=== PATIENT | male | born 1965 | race Hispanic/Latino ===

== ENCOUNTER 2020-07-27 22:01 | Emergency (ER) | payer OTHER, MEDICARE ==
[~2020-07-27] VITALS: Ht 165.1 cm; Wt 70.3 kg
== END 2020-07-27 23:49 | disposition home or self-care (01) ==
LOC: ED 22:01
DX: S51.812A Laceration without foreign body of left forearm, initial encounter (principal); F17.200 Nicotine dependence, unspecified, uncomplicated; X99.1XXA Assault by knife, initial encounter
CPT/HCPCS: 12004; 90471; 90715; 99283-25

== ENCOUNTER 2022-02-19 09:25 | Emergency (ER) | payer MEDICARE, OTHER ==
[~2022-02-19] VITALS: Ht 165.1 cm; Wt 70.3 kg
[2022-02-19] MEDS ORDERED: PROVENTIL HFA6.7 GM INH (11:40)
[2022-02-19] MEDS ORDERED: DOXYCYCLINE HY100 MG PO (11:40)
== END 2022-02-19 12:11 | disposition home or self-care (01) ==
LOC: ED 09:25
DX: J40 Bronchitis, not specified as acute or chronic (principal); F15.10 Other stimulant abuse, uncomplicated; F17.200 Nicotine dependence, unspecified, uncomplicated; Z20.822 Contact with and (suspected) exposure to COVID-19
CPT/HCPCS: 74022; 87502; 99283-25; C9803; U0003

== ENCOUNTER 2022-03-31 18:26 | Emergency (ER) | payer MEDICARE, OTHER ==
[~2022-03-31] VITALS: Ht 165.1 cm; Wt 70.3 kg
[~2022-03-31 18:26] MED LIST: DOXYCYCLINE HY100 MG PO; PREDNISONE20 MG PO; PROVENTIL HFA6.7 GM INH; VENTOLIN HFA18 GM INH
--- OUTSIDE RECORDS SUMMARY | 2022-03-31 18:34 | XMS ---
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 Briana has no Care Guidelines for this patient. Minh VISIT COUNT (12 MO.) 4 [facility] TOTAL 4 NOTE: Visits indicate total known visits. ED/C VISIT TRACKING (12 MO.) [facility] COMPLAINT: - SHORTNESS OF BREATH 03/12/2022 14:25 [facility] TYPE: Emergency COMPLAINT: - COUGH, SORE THROAT DIAGNOSES: - Unspecified asthma with (acute) exacerbation - Cough, unspecified - Nicotine dependence, unspecified, uncomplicated 02/25/2022 09:36 [facility] [place] TYPE: Emergency COMPLAINT: - COUGH DIAGNOSES: - Wheezing - Bronchitis, not specified as acute or chronic - Chronic obstructive pulmonary disease, unspecified - Nicotine dependence, unspecified, uncomplicated - Nicotine dependence, cigarettes, uncomplicated 02/19/2022 09:26 [facility] [place] TYPE: Emergency COMPLAINT: - COUGH, CHEST CONGESTION DIAGNOSES: - Nicotine dependence, unspecified, uncomplicated - Bronchitis, not specified as acute or chronic - Other stimulant abuse, uncomplicated - Contact with and (suspected) exposure to COVID-19 - Cough, unspecified INPATIENT VISIT TRACKING (12 MO.) No inpatient visits to display in this time frame [email or web address]
--- NOTE | 2022-04-02 11:43 | EKG ---
[facility] [address] [place] [address] Signed Normal sinus rhythm Normal ECG No previous ECGs available Confirmed by MARTHA BELLE MD ([id number]) on 04/02/2022 11:43:18 AM Electronically Signed By: MARTHA BELLE MD 04/02/22 1143 PATIENT NAME: KARENCONNIE E Electrocardiogram DATE OF : 61 PHYSICIAN: MARTHA BELLE MD REPORT #: [id number] REPORT IS CONFIDENTIAL AND NOT TO BE RELEASED WITHOUT AUTHORIZATION
== END 2022-03-31 20:47 | disposition home or self-care (01) ==
LOC: ED 18:26
DX: J44.1 Chronic obstructive pulmonary disease with (acute) exacerbation (principal); F15.10 Other stimulant abuse, uncomplicated; F17.200 Nicotine dependence, unspecified, uncomplicated; Z20.822 Contact with and (suspected) exposure to COVID-19
CPT/HCPCS: 36415; 71045; 80053; 85025; 87502; 93005; 93010; 94640; 96374; 99285-25; C9803; J2930; U0003

== ENCOUNTER 2022-05-14 08:23 | Emergency (ER) | payer MEDICARE, OTHER ==
[~2022-05-14] VITALS: Ht 165.1 cm; Wt 70.3 kg
[2022-05-14] MEDS ORDERED: VENTOLIN HFA18 GM INH (10:01)
[2022-05-14] MEDS ORDERED: PREDNISONE20 MG PO (10:01)
[2022-05-14] MEDS ORDERED: ALBUTEROL2.5 MG/3 M INH (10:01)
[2022-05-14] MEDS ORDERED: NEBULIZER UNIT XX (10:01)
--- NOTE | 2022-05-16 15:27 | EKG ---
[facility] [address] [facility] [place] [address] Signed Normal sinus rhythm Normal ECG When compared with ECG of 31-MAR-2022 18:41, No significant change was found Confirmed by MARTHA BELLE MD ([id number]) on 05/16/2022 3:26:55 PM Electronically Signed By: MARTHA BELLE MD 05/16/22 1527 PATIENT NAME: KARENABELARDOCONNIE E Electrocardiogram DATE OF : 61 PHYSICIAN: MARTHA BELLE MD REPORT #: [id number] REPORT IS CONFIDENTIAL AND NOT TO BE RELEASED WITHOUT AUTHORIZATION
== END 2022-05-14 10:36 | disposition home or self-care (01) ==
LOC: ED 08:23
DX: J44.1 Chronic obstructive pulmonary disease with (acute) exacerbation (principal); F17.200 Nicotine dependence, unspecified, uncomplicated; Z20.822 Contact with and (suspected) exposure to COVID-19
CPT/HCPCS: 36415; 71045; 80053; 83880; 85025; 87502; 96374; 99285-25; J2930; U0003

== ENCOUNTER 2022-09-08 12:54 | Emergency (ER) | payer MEDICARE, OTHER ==
[~2022-09-08] VITALS: Ht 165.1 cm; Wt 70.3 kg
[~2022-09-08 12:54] MED LIST changes: +ALBUTEROL2.5 MG/3 M INH; +NEBULIZER UNIT XX
[2022-09-08] MEDS ORDERED: PREDNISONE20 MG PO (14:01)
[2022-09-08] MEDS ORDERED: IPRAT-ALBUT 0.5-3 ML INH (14:01)
[2022-09-08] MEDS ORDERED: VENTOLIN HFA18 GM INH (14:01)
== END 2022-09-08 15:00 | disposition home or self-care (01) ==
LOC: ED 12:54
DX: J44.1 Chronic obstructive pulmonary disease with (acute) exacerbation (principal); F17.200 Nicotine dependence, unspecified, uncomplicated; Z79.899 Other long term (current) drug therapy; Z20.822 Contact with and (suspected) exposure to COVID-19
CPT/HCPCS: 87502; 94640; 99285-25; C9803; J7512; U0003